=== PATIENT | male | born 2000 | race Caucasian/White ===

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

== ENCOUNTER 2020-10-21 19:06 | Emergency (ER) | payer OTHER ==
[~2020-10-21] VITALS: Ht 165.1 cm; Wt 62.1 kg
[2020-10-21 19:16] VITALS: Ht 165.1 cm; Wt 62.1 kg
[2020-10-21 20:52] VITALS: BP 124/47
== END 2020-10-21 20:52 | disposition home or self-care (01) ==
LOC: ED 19:06
DX: S62.316A Displaced fracture of base of fifth metacarpal bone, right hand, initial encounter for closed fracture (principal); W22.8XXA Striking against or struck by other objects, initial encounter; Y92.89 Other specified places as the place of occurrence of the external cause; Y93.89 Activity, other specified; Y99.8 Other external cause status